=== PATIENT | female | born 1950 | race Caucasian/White ===

== ENCOUNTER → 2018-07-19 | Outpatient (CLI) | payer BC ==
[~2018-07-19] MED LIST: ALBU90OI61 INH; ALPR1; ALPR1 PO; ESOM20 PO; ETHNOR1/5; GUAPSEER PO; LEVSOD75; RABE20 PO
== END | disposition home or self-care (01) ==
LOC: LAB EV 15:09 → LAB SHORT 15:09
DX: N39.0 Urinary tract infection, site not specified (principal)
CPT/HCPCS: 87086

== ENCOUNTER → 2018-10-22 | Outpatient (CLI) | payer BC | END | disposition home or self-care (01) | LOC: LAB EV 12:37 → LAB SHORT 12:37 | DX: N39.0 Urinary tract infection, site not specified (principal) | CPT/HCPCS: 87086 ==

== ENCOUNTER → 2020-02-06 | Outpatient (CLI) | payer BC ==
[2020-02-07 10:49] LABS: Candida species (DNA Probe) Positive (NEGATIVE); G. vaginalis (DNA Probe) Negative (NEGATIVE); T. vaginalis (DNA Probe) Negative (NEGATIVE)
[2020-02-08 11:09] LABS: CHLAMYDIA BY NAA Negative (Negative); GONOCOCCUS BY NAA Negative (Negative); TRICH VAG BY NAA Negative (Negative)
== END | disposition home or self-care (01) ==
LOC: LAB EV 15:29 → LAB SHORT 15:29
PROVIDERS: Physician Assistant
DX: Z20.9 Contact with and (suspected) exposure to unspecified communicable disease (principal)
CPT/HCPCS: 87480; 87491; 87510; 87591; 87660; 87661

== ENCOUNTER → 2020-02-06 | Outpatient (CLI) | payer BC ==
[2020-02-07 07:08] LABS: HBSAG SCREEN Negative (Negative); HEP A AB, IGM Negative (Negative); HEP B CORE AB, IGM Negative (Negative); HEP C VIRUS AB 0.1 (0.0-0.9); HIV SCREEN 4TH GENERATION WRFX Non Reactive (Non Reactive)
== END | disposition home or self-care (01) ==
LOC: LAB SHORT 14:54 → LAB 14:54
PROVIDERS: Physician Assistant
DX: J02.9 Acute pharyngitis, unspecified (principal)
CPT/HCPCS: 80074; 86592; 87081; 87086; 87389

== ENCOUNTER 2020-08-17 13:02 | Emergency (ER) | payer BC ==
[~2020-08-17] VITALS: Ht 162.6 cm; Wt 72.6 kg
[2020-08-17] MEDS ORDERED: Xanax1 MG PO ×2 (13:36→13:40)
== END 2020-08-17 14:10 | disposition home or self-care (01) ==
LOC: ER 13:02
DX: F41.0 Panic disorder [episodic paroxysmal anxiety] (principal); F41.1 Generalized anxiety disorder; Z91.040 Latex allergy status; Z79.899 Other long term (current) drug therapy
CPT/HCPCS: 99283

== ENCOUNTER → 2023-01-19 | Outpatient (CLI) | payer BC ==
[~2023-01-19] MED LIST changes: +Xanax1 MG PO
== END ==
LOC: LAB SHORT 15:11 → LAB 15:11
DX: R31.9 Hematuria, unspecified (principal); R10.9 Unspecified abdominal pain
CPT/HCPCS: 87086

== ENCOUNTER → 2023-10-24 | Outpatient (CLI) | payer BC ==
[2023-10-24 21:10] LABS: Bun/Creatinine Ratio 29.8 (12.0-20.0); Calcium, Blood 9.2 mg/dL (8.5-10.1); Creatinine, Blood 0.5 mg/dL (0.40-1.00); Thyroid Stimulating Hormone 0.745 uIU/mL (0.360-4.800)
== END | disposition home or self-care (01) ==
LOC: LAB SHORT 17:06 → LAB 17:06
PROVIDERS: Nurse Practitioner Family
DX: E03.9 Hypothyroidism, unspecified (principal); L65.9 Nonscarring hair loss, unspecified; I10 Essential (primary) hypertension; R68.82 Decreased libido
CPT/HCPCS: 80048; 84443